=== PATIENT | female | born 1990 | race Caucasian/White ===

== ENCOUNTER → 2021-01-05 | Outpatient (CLI) | payer BC ==
[2021-01-05 08:45] LABS: POTASSIUM 3.9 mmol/L (3.5-5.1)
[2021-01-05 08:46] LABS: ALBUMIN 4.2 g/dL (3.5-5.0)
[2021-01-05 08:47] LABS: CALCIUM 8.6 mg/dL (8.3-10.5)
[2021-01-05 08:48] LABS: TOTAL PROTEIN 7.2 g/dL (6.4-8.3)
[2021-01-05 08:50] LABS: TOTAL BILIRUBIN 0.4 mg/dL (0.2-1.2)
[2021-01-05 08:55] LABS: BASO # 0.1 (0.02-0.10); EOS # 0.1 (0.04-0.40); EOS % 2.9 % (1.0-5.0); HEMATOCRIT 39.8 % (37.0-47.0); LYMPH# 1.8 (1.50-4.00); MEAN CELL VOLUME 91 fl (78-100); MEAN CORPUSCULAR HEMOGLOBIN 30 pg (27-31); MEAN CORPUSCULAR HGB CONC 33 g/dL (33-37); MEAN PLATELET VOLUME 9.4 fl (7.4-10.4); MONO # 0.3 (0.20-0.80); NEU # 1.9 (1.40-6.50); PLATELET COUNT 240 K/mm3 (130-400); RED BLOOD COUNT 4.39 M/mm3 (4.10-5.30); RED CELL DISTRIBUTION WIDTH 12.7 % (11.5-14.5); WHITE BLOOD COUNT 4.1 K/mm3 (4.8-10.8)
[2021-01-05 10:01] LABS: ERYTHROCYTE SEDIMENTATION RATE 8 mm/hr (0-20)
== END | disposition still patient (30) ==
LOC: LAB 07:08 → RAD 07:08
PROVIDERS: Internal Medicine
DX: Z00.00 Encounter for general adult medical examination without abnormal findings (principal); M65.9 Synovitis and tenosynovitis, unspecified

== ENCOUNTER → 2022-06-04 | Outpatient (CLI) | payer MEDICAID | LOC: RAD 13:48 | DX: S99.911A Unspecified injury of right ankle, initial encounter (principal) ==

== ENCOUNTER → 2022-12-17 | Outpatient (CLI) | payer MEDICAID | LOC: LAB 08:12 | DX: Z20.822 Contact with and (suspected) exposure to COVID-19 (principal); J01.90 Acute sinusitis, unspecified; J02.9 Acute pharyngitis, unspecified; R50.9 Fever, unspecified; R05.9 Cough, unspecified; R53.83 Other fatigue ==